=== PATIENT | female | born 1970 | race African-American/Black ===

== ENCOUNTER 2016-09-29 05:27 | Day surgery (SDC) | payer OTHER ==
[~2016-09-29] VITALS: Ht 162.6 cm; Wt 87.5 kg
[~2016-09-29 05:27] MED LIST: GAVISCON ES CH1 EACH PO; SYNTHROID100 MCG PO
[2016-09-29 05:57] VITALS: BP 134/62
[2016-09-29] MEDS ORDERED: HYDROCODON-ACE1 EAC7 PO (08:17)
[2016-09-29] MEDS ORDERED: IBUPROFEN800 MG PO (08:17)
[2016-09-29 09:22] VITALS: BP 120/61
[2016-09-29 10:05] VITALS: BP 115/66
[2016-09-29 10:30] VITALS: BP 128/59
== END 2016-09-29 10:46 | disposition home or self-care (01) ==
LOC: SDC 05:27
DX: D25.9 Leiomyoma of uterus, unspecified (principal); N84.1 Polyp of cervix uteri; N84.0 Polyp of corpus uteri; N93.9 Abnormal uterine and vaginal bleeding, unspecified; K21.9 Gastro-esophageal reflux disease without esophagitis; E03.9 Hypothyroidism, unspecified; E66.9 Obesity, unspecified; Z68.34 Body mass index [BMI] 34.0-34.9, adult; Z80.3 Family history of malignant neoplasm of breast; Z82.49 Family history of ischemic heart disease and other diseases of the circulatory system; Z83.42 Family history of familial hypercholesterolemia; Z83.3 Family history of diabetes mellitus; Z87.891 Personal history of nicotine dependence
CPT/HCPCS: 88305; J0131; J1100; J1885; J2250; J2405; J3010; Q0175